=== PATIENT | male | born 1975 | race Two or more races ===

== ENCOUNTER 2020-01-12 03:27 | Emergency (ER) | payer OTHER ==
[~2020-01-12] VITALS: Ht 175.3 cm; Wt 63.6 kg
[2020-01-12] MEDS ORDERED: LIDOCAINE 1% 10 ML VIAL INJ ONE (04:00)
[2020-01-12] MEDS ORDERED: PERTUSS(ACELL),DIPH,TET VAC/PF 0.5 ML VIAL IM ONE (04:00)
[2020-01-12 05:20] VITALS: BP 130/72
== END 2020-01-12 05:23 | disposition home or self-care (01) ==
LOC: EMS 03:27
DX: S81.012A Laceration without foreign body, left knee, initial encounter (principal); Y04.0XXA Assault by unarmed brawl or fight, initial encounter; Y93.89 Activity, other specified; Y92.89 Other specified places as the place of occurrence of the external cause; Y99.8 Other external cause status
CPT/HCPCS: 12002; 73562; 90471; 90715; 99283; J3490